=== PATIENT | male | born 1980 | race African-American/Black ===

== ENCOUNTER 2023-03-29 20:27 | Emergency (ER) | payer SELFPAY ==
[~2023-03-29] VITALS: Ht 177.8 cm; Wt 84.0 kg
[2023-03-29 20:34] VITALS: RESP 25
[2023-03-29] MEDS ORDERED: ALBUTEROL (0.083%) 2.5MG/3ML NEB HHN STA (20:34)
[2023-03-29] MEDS ORDERED: METHYLPREDNISOLONE SOD SUCC 125MG/2ML (ACT-O-VIAL) IV STA (20:34)
[2023-03-29] MEDS ORDERED: IPRATROPIUM BROMIDE (0.02%) 0.5MG/2.5ML NEB HHN STA (20:34)
[2023-03-29 20:45] VITALS: O2SAT 97
[2023-03-29] MEDS ORDERED: MAGNESIUM 2 G PREMIX 50 ML IV ONE (20:45)
[2023-03-29] MEDS ORDERED: ALBUTEROL (0.083%) 2.5MG/3ML NEB HHN SCH (21:00)
[2023-03-29 21:02] LABS: BG BASE EXCESS -0.2 mmol/L (-2.0-2.0); BG CARBOXYHEMOGLOBIN 0.6 % (0.5-1.5); BG DEOXYHEMOGLOBIN 0.3 % (0.0-5.0); BG FRACTION INSPIRED OXYGEN 100; BG HCO3 ACT 23.6 mmol/L (22.0-26.0); BG METHEMOGLOBIN 0.2 % (0.0-1.5); BG OXYGEN SATURATION 99.7 % (92.0-98.5); BG OXYHEMOGLOBIN 98.9 % (94.0-97.0); BG PCO2 36.3 mmHg (35.0-45.0); BG PH 7.431 (7.350-7.450); BG PO2 538.8 mmHg (75.0-100.0); BG SAMPLE SITE RIGHT RADIAL; BG TOTAL HEMOGLOBIN 14.7 g/dL (12.0-18.0); BG VENT MODE MASK - BIPAP
[2023-03-29 21:02] LABS: BASOPHILS % 0.4 % (0.0-2.0); EOSINOPHILS % 2.4 % (0.0-5.0); HEMOGLOBIN. 13.7 g/dL (14.0-18.0); LYMPHOCYTES % 36.8 % (20.0-50.0); MEAN CORPUSCULAR VOLUME 87.7 fL (80.0-94.0); MONOCYTES % 6.4 % (2.0-8.0); PLATELET 299 x1000/uL (130-400); RED CELL DISTRIBUTION WIDTH 13.4 % (11.6-14.6)
[2023-03-29 21:07] LABS: CHLORIDE 98 mEq/L (98-107)
[2023-03-29] MEDS ORDERED: CEFTRIAXONE 1GM PREMIX 50 ML IV ONE (22:30)
[2023-03-29] MEDS ORDERED: ALBU6.7H15 INH (23:13)
[2023-03-29] MEDS ORDERED: P50 MT (23:13)
[2023-03-30 00:11] VITALS: BP 119/69; PULSE 80; RESP 14; TEMP 98.8
== END 2023-03-30 00:14 | disposition home or self-care (01) ==
LOC: EDBD 20:27 → ER 20:27
DX: J45.901 Unspecified asthma with (acute) exacerbation (principal)
CPT/HCPCS: 80053; 83880; 83605; 85025; 84484; 36415; 71045; 94640; 82805; 82375; 96365; 96366; 96375; 99291; 36600; J0696; J3475; J2930; Z7610 ×4; 94660